=== PATIENT | female | born 1965 ===

== ENCOUNTER 2017-11-06 11:38 | Emergency (ER) | payer OTHER ==
[2017-11-06 12:55] VITALS: BP 121/78
--- NOTE | 2017-11-06 13:27 | ED ---
GI/ HPI - HPI Summary HPI Summary: 52F presents with left flank pain for the past day. She states pain is constant but it becomes more sharp throughout the day. She has never had this before. no history of kidney stones. no hematuria. no fevers. no injury. no chest pain or SOB. no loss of bowel or bladder or saddle anaesthesia. no history of back pain. no dysuria, hematuria or frequency. no history of pyelo. admits to nausea but no vomiting. can not get comfortable. - History of Current Complaint Chief Complaint: UCBackPain Time Seen by Provider: 11/06/17 13:21 Stated Complaint: PAIN - LEFT SIDE Pain Intensity: 7 - Allergy/Home Medications Allergies/Adverse Reactions: Allergies Allergy/AdvReac Type Severity Reaction Status Date / Time No Known Allergies Allergy Verified 11/06/17 12:47 Home Medications: Home Medications Acetaminophen [Acetaminophen Extra Strength] 1,000 mg PO Q6H PRN 11/06/17 [ History Confirmed 11/06/17] Calcium Carbonate/Vitamin D3 [Calcium 600 + Vit D Tablet] 2 each PO BID [History Confirmed 11/06/17] Cholecalciferol TAB* [Vitamin D TAB*] 2,000 units PO DAILY 11/06/17 [History Confirmed 11/06/17] Cyanocobalamin TAB* [Vitamin B12 TAB*] 1,000 mcg PO DAILY 11/06/17 [History Confirmed 11/06/17] Hydroxychloroquine TAB* [Plaquenil TAB*] 200 mg PO BID 11/06/17 [History Confirmed 11/06/17] Levothyroxine TAB* [Synthroid TAB*] 125 mcg PO DAILY 11/06/17 [History Confirmed 11/06/17] NIFEdipine ER TAB* [Procardia Xl TAB*] 30 mg PO DAILY 11/06/17 [History Confirmed 11/06/17] Eudora-3S/Dha/Epa/Fish Oil [Fish Oil 1,200 mg Softgel] 1 each PO BID 11/06/17 [ History Confirmed 11/06/17] PMH/Surg Hx/FS Hx/Imm Hx Endocrine/Hematology History: Reports: Hx Thyroid Disease - s/p Thyroidectomy Cardiovascular History: Denies: Hx Cardiac Arrest Neurological History: Reports: Hx Migraine - Surgical History Surgery Procedure, Year, and Place: Eye Surgery, Thryroidectomy, Varicose Veins Infectious Disease History: No Infectious Disease History: Denies: Traveled Outside the [place] in Last 30 Days - Family History Known Family History: Negative: Renal Disease - Social History Alcohol Use: Occasionally Substance Use Type: Reports: None Smoking Status (MU): Former Smoker Length of Time of Smoking/Using Tobacco: 1 PPD x 8 Years Review of Systems Negative: Fever Negative: Chest Pain Negative: Shortness Of Breath Positive: Abdominal Pain, Nausea. Negative: Vomiting, Diarrhea Positive: flank pain. Negative: dysuria All Other Systems Reviewed And Are Negative: Yes Physical Exam Triage Information Reviewed: Yes Vital Signs On Initial Exam: Initial Vitals Temp Pulse Resp BP Pulse Ox 98.3 F 66 18 121/78 99 11/06/17 12:45 11/06/17 12:45 11/06/17 12:45 11/06/17 12:45 11/06/17 12:45 Vital Signs Reviewed: Yes Appearance: Positive: Well-Appearing Skin: Positive: Warm, Dry Head/Face: Positive: Normal Head/Face Inspection Eyes: Positive: Normal, Conjunctiva Clear ENT: Positive: Pharynx normal Respiratory/Lung Sounds: Positive: Clear to Auscultation, Breath Sounds Present Cardiovascular: Positive: Normal, RRR Abdomen Description: Positive: Nontender, Soft, CVA Tenderness (L) Bowel Sounds: Positive: Present Musculoskeletal: Positive: Normal Neurological: Positive: Normal Psychiatric: Positive: Normal Diagnostics - Vital Signs Vital Signs Temp Pulse Resp BP Pulse Ox 11/06/17 12:45 98.3 F 66 18 121/78 99 - Laboratory Lab Statement: Any lab studies that have been ordered have been reviewed, and results considered in the medical decision making process. - CT abd CT Interpretation: Positive (See Comments) - IMPRESSION: 1. No CT evidence of urolithiasis. 2. 3.1 cm left adnexal cyst. Suggest follow-up ultrasonography in 2-3 menstrual cycles to reassess. 3. Normal appendix CT Interpretation Completed By: Radiologist LAVERNE Course/Dx - Course Course Of Treatment: 52F presents with left flank pain for the past day. She states pain is constant but it becomes more sharp throughout the day. She has never had this before. no history of kidney stones. no hematuria. no fevers. no injury. no chest pain or SOB. no loss of bowel or bladder or saddle anaesthesia. no history of back pain. no dysuria, hematuria or frequency. no history of pyelo. admits to nausea but no vomiting. can not get comfortable. pain wraps around to LUQ. on exam has tenderness left flank. lungs CTA. urine shows no infection. with how uncomfortable patient is will get CT. CT shows no stone but does show ovarian cyst. will treat as muscular pain. gave short of pain medication and lidocaine patches. patient will follow up with primary about symptoms. patient understnad and agrees with plan. - Diagnoses Differential Diagnoses - Female: Pyelonephritis, Urinary Tract Infection, Ureteral Calculi Provider Diagnoses: Left flank pain, Ovarian cyst Discharge - Sign-Out/Discharge Documenting (check all that apply): Discharge/Admit/Transfer - Discharge Plan Condition: Good Disposition: HOME Prescriptions: Lidocaine PATCH 5%* [Lidoderm 5% Patch*] 1 patch TRANSDERM DAILY #7 patch traMADol TAB* [Ultram*] 50 mg PO Q12H PRN #6 tab MDD 2 PRN Reason: Pain Patient Education Materials: Flank Pain (ED) Referrals: Hank Willams [Primary Care Provider] - Additional Instructions: Apply lidocaine patches to area for up to 12 hours in one 24 hour period Use ibuprofen or Tylenol for pain every 6 hours, use narcotic for break through pain every 12 hours as needed ice/heat area, move as much as possible Follow up with primary within 5 days Return to ED if develop any new or worsening symptoms - Billing Disposition and Condition Condition: GOOD Disposition: Home
--- NOTE | 2017-11-06 14:07 | RAD ---
INDICATION: Left flank pain COMPARISON: None TECHNIQUE: Noncontrast axial source images were acquired from the level hemidiaphragms to the symphysis pubis as part of CT imaging for renal stone. Lung bases: The lung bases are clear. Liver: The liver is normal in size. Noncontrast imaging shows no evidence of a hepatic mass or ductal dilatation. Gallbladder: There are no calcified gallstones. There is no evidence of wall thickening or pericholecystic fluid.. Spleen: The spleen is normal in size. The noncontrast CT appearance is normal. Pancreas: Noncontrast imaging shows no pancreatic mass or ductal dilitation. Adrenal glands: No masses are identified. Kidneys/Bladder: There is no evidence of nephrolithiasis or CT evidence of hydronephrosis. Noncontrast imaging shows no evidence of a renal mass. There is a dromedary hump on the left. There is renal parenchymal thinning in the upper pole of the left. Left kidney is malrotated. The bladder is unremarkable.. Adenopathy: There is no evidence of intraperitoneal or retroperitoneal adenopathy. Evaluation is limited without oral contrast. Fluid collections: There are no free or localized fluid collections. Vessels: The aorta and iliac vessels are normal in caliber. There are no significant atherosclerotic changes. The IVC appears normal Pelvic organs: There is a 3.1 cm left adnexal cyst. The uterus and adnexa are otherwise unremarkable GI tract: Evaluation of the bowel is limited without oral contrast. The stomach, small bowel, and lower GI tract appear grossly normal. There are no obstructive findings. The appendix is visualized and appears normal. Soft tissues: No soft tissue abnormalities of the extraperitoneal abdomen or pelvis are identified. Osseous structures: There are no acute osseous findings. IMPRESSION: 1. No CT evidence of urolithiasis. 2. 3.1 cm left adnexal cyst. Suggest follow-up ultrasonography in 2-3 menstrual cycles to reassess. 3. Normal appendix
== END 2017-11-06 14:24 | disposition home or self-care (01) ==
LOC: UCCORT 11:38
DX: N83.202 Unspecified ovarian cyst, left side (principal); Z87.891 Personal history of nicotine dependence; E07.9 Disorder of thyroid, unspecified; G43.909 Migraine, unspecified, not intractable, without status migrainosus
CPT/HCPCS: 74176; 81003; 99212; G0463